=== PATIENT | male | born 1960 | race Caucasian/White ===

== ENCOUNTER 2016-12-04 08:23 | Observation (INO) ==
[2016-12-04] MEDS ORDERED: SALINE FLUSH 10ml SYRINGE IVF PRN (09:07)
[2016-12-04] MEDS ORDERED: ONDANSETRON 4 MG/2 ML INJECTION IVP ONE (09:08)
[2016-12-04] MEDS ORDERED: FentaNYL 100 MCG/2 ML INJECTION IVP ONE (09:08)
--- OUTSIDE RECORDS SUMMARY | 2016-12-04 09:08 | External Medical Summary | Summary of Care ---
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 Take 6 tablets po BIDScript must last [address] Hernandez. Quantity: 360 Refills: 0 Deepa Novak Started 07-Jan-2012 ActiveAtenolol 25 MG Oral Tablet Refills: 0 ActiveSimvastatin 40 MG Oral Tablet Refills: 0 ActiveQvar 80 MCG/ACT Inhalation Aerosol Solution Refills: 0 ActiveProAir HFA 108 (90 Base) MCG/ACT Inhalation Aerosol Solution Refills: 0 ActivePristiq 100 MG Oral Tablet Extended Release 24 Hour Refills: 0 ActiveBaby Aspirin 81 MG CHEW Refills: 0 ActiveMethocarbamol 750 MG Oral Tablet TAKE 1 TABLET TWICE DAILY. Quantity: 60 Refills: 2 Deepa Novak Started 07-Jun-2014 Active Allergies and Adverse Reactions Name Dates Details No Known Allergies Status: Active Procedures Procedure Dates Details Procedures not documented Immunization Name Dates Details Immunizations not documented Social History Smoking StatusUnknown if ever smoked Vital Signs Date Test Result Details No Known Vitals to report Results Date Description Value Details Results not documented Plan of Care Planned Observations Name Dates Details Planned Goals not documented Goal Planned Encounters Appointment; Provider: Deepa Novak On 08:00 Instructions Instructions not documented Encounters Appointment; Deepa Novak On 07-Jun-2014 Encounter Diagnosis: Problem not documented 08:00 Appointment; Deepa Novak On 31-Mar-2014 Encounter Diagnosis: Problem not documented 09:45 Appointment; Remington Hernandez On 07-Dec-2013 Encounter Diagnosis: Problem not documented 08:15 Appointment; Remington Hernandez On Encounter Diagnosis: Problem not documented 08:15 Appointment; Remington Hernandez On 08-Jun-2013 Encounter Diagnosis: Problem not documented 08:15 Appointment; Remington Hernandez On 10-Mar-2013 Encounter Diagnosis: Problem not documented 08:45 Appointment; Remington Hernandez On 09-Dec-2012 Encounter Diagnosis: Problem not documented 08:15 Appointment; Remington Hernandez On Encounter Diagnosis: Problem not documented 08:15 Appointment; Remington Hernandez On 10-Jun-2012 Encounter Diagnosis: Problem not documented 08:15
--- OUTSIDE RECORDS SUMMARY | 2016-12-04 09:08 | External Medical Summary | Summary of Care ---
:1960 Author Name Deepa Robins Address [address] [place], [place] [id number] Care Team Providers Name Role Phone Deepa Robins Unavailable Unavailable Mane Subramanian Primary Care Provider Unavailable Functional Status Functional Status Health Issues Name Dates Details Functional status health issues are not documented Status: Cognitive Status Health Issues Name Dates Details Cognitive status health issues are not documented Status: Problems Name Dates Details Anxiety (300.00, F41.1) Status: Active Lower back pain (724.2, M54.5) [...] Quantity: 360 Refills: 0 Deepa Novak Started 04-Nov-2014 ActiveAtenolol 25 MG Oral Tablet Refills: 0 [...] Planned Encounters Appointment; Provider: Deepa Novak On 29-Nov-2014 08:00 Instructions Instructions not documented Encounters Appointment; Deepa Novak On Encounter Diagnosis: Problem not documented 08:00 Appointment; Deepa Novak On 07-Jun-2014 Encounter Diagnosis: [...]
--- OUTSIDE RECORDS SUMMARY | 2016-12-04 09:08 | External Medical Summary | Summary of Care ---
:1960 Author Name Deepa Robins Address [address] [place], [place] [id number] Care Team Providers Name Role Phone Deepa [...] Quantity: 360 Refills: 0 Deepa Novak Started 07-Jul-2014 ActiveAtenolol 25 MG Oral Tablet Refills: 0 [...]
--- OUTSIDE RECORDS SUMMARY | 2016-12-04 09:08 | External Medical Summary | Referral Summary ---
:1960 Author Organization [facility] Address [address] [place] [address] Encounter VC LISA [id number] Date(s): 05/06/15 - 05/07/15 [facility] [address] [place] [address] Discharge Disposition: 01-Home or Self Care Attending Physician: Juan Manuel Muniz MD Admitting Physician: Juan Manuel Muniz MD Vital Signs Most recent to oldest [Reference Range]: 1 Temperature Temporal Artery [36.3-37.8 degC] 36.4 degC (05/07/15 7:30 AM) Peripheral Pulse Rate [60-100 bpm] 68 bpm (05/06/15 1:17 PM) Heart Rate Monitored [60-100 bpm] 68 bpm (05/07/15 7:30 AM) Respiratory Rate [14-20 br/min] 9 br/min *LOW* (05/07/15 7:30 AM) Blood Pressure [90-140/60-90 mmHg] 114/72 mmHg (05/07/15 7:30 AM) Mean Arterial Pressure, Cuff 89 mmHg (05/07/15 7:30 AM) SpO2 98 % (05/07/15 7:30 AM) Problem List Condition Effective Dates Status Health Status Informant Acute pain(Confirmed) Active Impaired skin integrity(Confirmed)1 Active Tissue perfusion Active alteration(Confirmed)2 Urinary retention(Confirmed)3 Active 1Problem added automatically by system based on initiation of Impaired Skin Integrity Plan of [id number] added automatically by system based on initiation of Tissue Perfusion Cerebral Plan of [id number] added automatically by system based on initiation of Urinary Retention Plan of Care Allergies, Adverse Reactions, Alerts Substance Reaction Severity Status ibuprofen Abdominal pain Active Soma Active Medications amitriptyline 10 mg oral tablet 10 mg 1 tabs, Oral, Bedtime (once a day), 0 Refill(s) Start Date: 05/06/15 Status: Orderedatenolol 25 mg oral tablet 25 mg 1 tabs, Oral, BID, 0 Refill(s) Start Date: 05/06/15 Status: Orderedatorvastatin 40 mg oral tablet 40 mg 1 tabs, Oral, Bedtime (once a day), 0 Refill(s) Start Date: 05/06/15 Status: Orderedbaclofen 10 mg oral tablet 10 mg 1 tabs, Oral, TID, as needed for muscle spasm, 0 Refill(s) Start Date: 05/06/15 Status: OrderedBenadryl 25 mg oral tablet 50 mg 2 tabs, Oral, q4hr, as needed for allergy symptoms, 0 Refill(s) Start Date: 05/06/15 Status: OrderedCalcium 600+D 2 tabs, Oral, Daily, 0 Refill(s) Start Date: 05/06/15 Status: OrderedclonazePAM 1 mg oral tablet 1.5 mg 1.5 tabs, Oral, BID, 0 Refill(s) Start Date: 05/06/15 Status: Orderedcollagenase 250 units/g topical ointment 1 roland, Topical, Daily, 0 Refill(s) Start Date: 05/07/15 Status: Orderedgabapentin 800 mg oral tablet 800 mg 1 tabs, Oral, TID, 0 Refill(s) Start Date: 05/06/15 Status: CqwnvxyYfp-V-Uxp 50+ 1 tabs, Oral, Daily, 0 Refill(s) Start Date: 05/06/15 Status: OrderedoxyCODONE-acetaminophen 10 mg-325 mg oral tablet range dose 1 tabs, Oral, q4hr, every 4-6 hours; not to exceed 6 tablets/day, 0 Refill(s) Start Date: 05/06/15 Status: Orderedpantoprazole 40 mg oral delayed release tablet 40 mg 1 tabs, Oral, Daily, 0 Refill(s) Start Date: 05/06/15 Status: OrderedQvar 80 mcg/inh inhalation aerosol 2 puffs, Inhalation, BID, as needed, 0 Refill(s) Start Date: 05/06/15 Status: OrderedtraZODone 100 mg oral tablet 200 mg 2 tabs, Oral, Bedtime (once a day), 1-2 tabs, 0 Refill(s) Start Date: 05/06/15 Status: OrderedVitamin C 1,000 mg, Oral, Daily, 0 Refill(s) Start Date: 05/06/15 Status: Ordered Results Hematology Most recent to oldest [Reference Range]: 1 WBC [4.8-10.8 10*3/uL] 8.8 10*3/uL (05/07/15 4:40 AM) RBC [4.60-6.20] 3.87 *LOW* (05/07/15 4:40 AM) Hgb [14.0-18.0 gm/dL] 13.0 gm/dL *LOW* (05/07/15 4:40 AM) Hct [42.0-52.0 %] 38.3 % *LOW* (05/07/15 4:40 AM) MCV [82.0-99.0 fL] 99.0 fL (05/07/15 4:40 AM) MCH [27.0-32.0 pg] 33.6 pg *HI* (05/07/15 4:40 AM) MCHC [32.0-36.0 gm/dL] 33.9 gm/dL (05/07/15 4:40 AM) RDW [11.5-14.5 %] 13.4 % (05/07/15 4:40 AM) Platelet [150-400 10*3/uL] 193 10*3/uL (05/07/15 4:40 AM) MPV [9.4-12.3 fL] 9.9 fL (05/07/15 4:40 AM) Immature Granulocytes [0.0-1.0 %] 0.2 % (05/07/15 4:40 AM) Neutrophils [51-75 %] 50 % *LOW* (05/07/15 4:40 AM) Lymphocytes [20-46 %] 35 % (05/07/15 4:40 AM) Monocytes [4-11 %] 11 % (05/07/15 4:40 AM) Eosinophils [0-4 %] 3 % (05/07/15 4:40 AM) Basophils [0-2 %] 1 % (05/07/15 4:40 AM) Neutro Absolute [1.90-7.00 10*3] 4.37 10*3 (05/07/15 4:40 AM) Lymph Absolute [0.80-3.30 10*3] 3.10 10*3 (05/07/15 4:40 AM) Nash Absolute [0.30-1.00 10*3] 0.96 10*3 (05/07/15 4:40 AM) Eos Absolute [0.00-0.50 10*3] 0.28 10*3 (05/07/15 4:40 AM) Baso Absolute [0.00-0.20 10*3] 0.06 10*3 (05/07/15 4:40 AM) Nucleated RBC Automated [0 /100 WBC] 0.0 /100 WBC (05/07/15 4:40 AM) Chemistry Most recent to oldest [Reference Range]: 1 Sodium Lvl [136-144 mEq/L] 134 mEq/L *LOW* (05/07/15 4:40 AM) Potassium Lvl [3.6-5.1 mEq/L] 3.4 mEq/L *LOW* (05/07/15 4:40 AM) Chloride [99-109 mEq/L] 102 mEq/L (05/07/15 4:40 AM) CO2 [22-32 mEq/L] 24 mEq/L (05/07/15 4:40 AM) AGAP [3-20] 8 (05/07/15 4:40 AM) BUN [4-20 mg/dL] 16 mg/dL (05/07/15 4:40 AM) Glucose Lvl [70-100 mg/dL] 104 mg/dL *HI* (05/07/15 4:40 AM) Creatinine Lvl [0.64-1.27 mg/dL] 1.34 mg/dL *HI* (05/07/15 4:40 AM) eGFR [>60] 55 1 *ABN* (05/07/15 4:40 AM) Calcium Lvl [8.6-10.0 mg/dL] 8.6 mg/dL (05/07/15 4:40 AM) Magnesium Lvl [1.8-2.5 mg/dL] 1.9 mg/dL (05/07/15 4:40 AM) 1Result Comment: Multiply eGFR results by 1.21 for race. Immunizations No data available for this section Procedures Procedure Date Related Diagnosis Body Site Dressings and/or debridement of partial-thickness 05/06/15 kenny, initial or subsequent; small (less than 5% total body surface area) Arthroscopic repair of meniscus History of back surgery History of tonsillectomy Social History No data available for this section Assessment and Plan No data available for this section
--- OUTSIDE RECORDS SUMMARY | 2016-12-04 09:08 | External Medical Summary | Summary of Care ---
:1960 Author Name Deepa Robins Address [address] [place], [place] [id number] Care Team Providers Name Role Phone Deepa Robins Unavailable Unavailable Janelle Hernandez M.D. Unavailable Unavailable Mane Subramanian Primary Care Provider [...] by Dr. Hernandez. Quantity: 360 Refills: 0 Remington Hernandez M.D. Started ActiveAtenolol 25 MG Oral Tablet Refills: 0 [...]
--- OUTSIDE RECORDS SUMMARY | 2016-12-04 09:08 | External Medical Summary | Summary of Care ---
:1960 Author Name Janelle Hernandez M.D. Address [address] [place], [place] [id number] Care Team Providers Name Role Phone Deepa [...] 360 Refills: 0 Remington Hernandez M.D. Started 03-Jan-2015 ActiveAtenolol 25 MG Oral Tablet Refills: 0 [...] 60 Refills: 2 Deepa Novak Started 07-Jun-2014 ActiveOxycodone-Acetaminophen 10-325 MG Oral Tablet Take 1 to 2 PO every 4-6 hrs prn*max 2 per day*Script must last [address] Hernandez Quantity: 60 Refills: 0 Remington Hernandez M.D. Started 29-Dec-2014 Active Allergies and Adverse Reactions Name Dates Details No Known Allergies Status: Active Procedures Procedure Dates Details Procedures not documented Immunization Name Dates Details Immunizations not documented Social History Name Dates Details Smoking StatusFormer smoker Vital Signs Date Test Result Details No Known Vitals to report Results Date Description Value Details Results not documented Plan of Care Planned Observations Name Dates Details Planned Goals not documented Goal Instructions Instructions not documented Encounters Appointment; Remington Hernandez On 29-Nov-2014 Encounter Diagnosis: Problem not documented 08:15 Appointment; Deepa Novak On Encounter Diagnosis: Problem [...]
--- NOTE | 2016-12-04 09:09 | Emergency Department Report ---
General Adult HPI - General Chief complaint: Extremity Injury, Upper Stated complaint: Cat bite Time Seen by Provider: 12/04/16 09:06 Source: patient Mode of arrival: ambulatory Limitations: no limitations - History of Present Illness HPI narrative: 56-year-old male presents to the emergency department with a chief complaint of suffering a cat bite 4 days ago. Patient was bitten by his own cat. Cat is vaccinated. Patient notes increasing redness and swelling to the right upper extremity over the past 4 days. Patient was started on Augmentin one day ago by his primary care physician without improvement of symptoms. Patient describes the pain as dull. Pain is moderate. No radiation. Pain improves with analgesia. Patient denies any other complaints or associated symptoms. He was at home when the symptoms began. Symptoms have been persistent in nature since onset. Patient states his tetanus vaccine is current. - Related Data Home Medications Medication Instructions Recorded Confirmed Aspirin [Aspir 81] 81 mg PO DAILY #0 06/02/14 12/04/16 Multivitamin/Iron/Folic Acid 1 tab PO DAILY #0 06/02/14 12/04/16 [Centrum Complete Multivit Tab] benazepril 10 mg tablet 10 mg PO DAILY tab 07/26/16 12/04/16 Vicodin HP (Hydrocodone 10 1 tab PO .6 times per day PRN tab 08/13/16 12/04/16 mg-acetaminophen 300 mg tablet) Previous Rx's Medication Instructions Recorded trazodone 100 mg tablet 100 mg PO HS #30 tab 11/27/16 Colyte 240 gram-electrolytes 22.72 240 ml PO Q10M #1 gal 11/29/16 gram-6.72 g-5.84 g powdr for soln Neurontin (gabapentin) 800 mg 800 mg PO QID #180 tab 11/29/16 tablet Prilosec (Omeprazole) 40 mg 40 mg PO AM #30 cap 11/29/16 capsule,delayed release Zocor (simvastatin) 20 mg tablet 20 mg PO HS #90 tab 11/29/16 albuterol sulfate HFA 90 1 puff INH Q6H PRN #18 g 11/29/16 mcg/actuation aerosol inhaler baclofen 10 mg tablet 10 mg PO Q8H #60 tab 11/29/16 Augmentin (amoxicillin 875 1 tab PO BID #10 tab 12/03/16 mg-potassium clavulanate 125 mg) tablet Allergies Allergy/AdvReac Type Severity Reaction Status Date / Time clonazepam [From Klonopin] Allergy Unknown Verified 08/13/16 13:00 Sulfa (Sulfonamide Allergy Unknown Unverified 08/13/16 13:00 Antibiotics) ibuprofen AdvReac Mild UPSETS Verified 08/13/16 13:00 STOMACH Review of Systems Constitutional: Denies: fever, chills Eyes: Denies: eye pain, vision change ENT: Denies: ear pain, throat pain Cardiovascular: Denies: chest pain, palpitations Respiratory: Denies: cough, dyspnea Gastrointestinal: Denies: abdominal pain, nausea, vomiting, diarrhea Genitourinary: Denies: urgency, dysuria Musculoskeletal: Denies: back pain, arthralgia Integumentary: Reports: erythema. Denies: rash Neurological: Denies: headache, weakness Psychiatric: Denies: anxiety, depression Endocrine: Denies: fatigue, heat or cold intolerance Hematological/Lymphatic: Denies: easy bleeding, easy bruising Allergic/Immunologic: Denies: facial swelling, urticaria PFSH Patient Stated Medical History Hypertension Yes Other Respiratory Yes: [facility] Medical History (Last Reviewed 08/13/16 @ 13:01 by AMINATA Daniel) CAD (coronary artery disease) (Chronic Medical) COPD (chronic obstructive pulmonary disease) (Chronic Medical) Low back pain (Chronic Medical) Surgical History: CABG Family History: Family History (Last Reviewed 08/13/16 @ 13:01 by AMINATA Daniel) Father , Lung Cancer age 65 Lung cancer CAD (coronary artery disease) HTN (hypertension) Mother , age 67 Multiple myeloma and diabetes Multiple myeloma Diabetes - Social History Smoking status: Former smoker Substance use type: does not use Alcohol intake frequency: does not drink Physical Exam - Limitations Limitations: no limitations - General General appearance: alert, in no apparent distress - Normal Exams: Head:: Normocephalic without trauma Eyes:: Pupils are PERRLA w/ EOMI, No scleral icterus, irritation, or foreign bodies noted ENMT:: No facial trauma, nasal exudates, pharyngeal erythema, or exudates are noted Dental: No fractured, loose, or missing teeth noted Neck:: Full range of motion, without adenopathy, JVD, bruits or thyromegaly Chest/Respirations:: Clear all condon, with good airflow, and symmetry bilaterally Cardiovascular:: Regular rate and rhythm, without murmur or gallop, Pulses 2+ all extremities, capillary refill, <2 seconds all extremities Abdomen:: Bowel sounds positive, soft, non-tender, non-distended, no hepatosplenomegaly, masses or bruits noted Lymphatic:: No lymphadenopathy, or lymphedema noted Musculoskeletal:: No tenderness, or deformity noted, good range of motion, all extremities Integumentary:: No rashes, hives, or bruising noted, hair and nails, without abnormality (RUE - erythema consistent with cellulitis overlying the volar surface of the forearm extending down into the palm of the hand and approximately two thirds up the volar surface of the forearm. No sign of abscess. Pulses are intact. Sensation intact. Capillary refill less than 2. Full range of motion. No focal bony tenderness. No other tenderness in the right upper extremity.) Neurological:: Patient is alert, and oriented, cranial nerves, motor/sensory/ cerebellar, exams w/o gross deficits, to observation Course Vital Signs Temperature 97.8 F 12/04/16 08:40 Pulse Rate 93 12/04/16 08:40 Respiratory Rate 16 12/04/16 08:40 Blood Pressure 155/91 H 12/04/16 08:40 Pulse Oximetry 96 12/04/16 08:40 Temperature 97.8 F 12/04/16 08:40 Pulse Rate 93 12/04/16 08:40 Respiratory Rate 16 12/04/16 08:40 Blood Pressure 155/91 H 12/04/16 08:40 Pulse Oximetry 96 12/04/16 08:40 Medical Decision Making - [facility] Narrative Medical decision making narrative: Labs / imaging were discussed in detail with the patient and questions are answered. Patient is given analgesic pain medication with improvement of symptoms in the emergency Department. Patient is started on Zosyn 4.5 g IV 1 after blood cultures and lactic acid are obtained. Patient is admitted to the service of the hospitalist Dr. Mckinney after discussion with him for further evaluation and treatment. Patient has failed outpatient treatment. Patient is in agreement with the current plan of management. No further orders from accepting physician who is in agreement with the current plan of management. - Differential Diagnosis cellulitis, lymphangitis, cat bite, abscess - Lab Data Result diagrams: 12/04/16 09:25 12/04/16 09:25 Lab Results 12/04/16 12/04/16 12/04/16 Range/Units 09:25 09:25 09:25 WBC 10.0 (4.5-11.0) T/MM3 RBC 3.57 L (4.50-5.90) M/MM3 Hgb 12.6 L (13.5-17.5) GM/DL Hct 37.1 L (41-53) % MCV 103.9 H (80-100) UM3 MCH 35.3 H (26-34) UUG MCHC 34.0 (31-37) GM/DL RDW Std Deviation 47.0 (36.9-50.2) FL Plt Count 187 (130-400) T/MM3 MPV 9.7 (9.4-12.4) UM3 Immature Gran % (Auto) Not performed Neut % (Auto) Not performed Lymph % (Auto) Not performed [place] % (Auto) Not performed Eos % (Auto) Not performed Baso % (Auto) Not performed Neut # (Auto) Not performed Lymph # (Auto) Not performed [place] # (Auto) Not performed Eos # (Auto) Not performed Baso # (Auto) Not performed Abs Immat Gran (auto) Not performed Neutrophils % (Manual) 86.0 H (33-66) % Band Neutrophils % 1.0 (0-6) % Lymphocytes % (Manual) 7.0 L (23-45) % Monocytes % (Manual) 6.0 (0-9.0) % Neutrophils # (Manual) 8.6 H (1.8-7.7) T/MM3 Band Neutrophils # 0.1 T/MM3 Lymphocytes # (Manual) 0.7 L (1-4.8) T/MM3 Monocytes # (Manual) 0.6 (0-0.8) T/MM3 Anisocytosis 1+ RBC Morph Comment Abnormal Turbidity < 20 (0-20) Sodium 143 (134-144) MEQ/L Potassium 4.2 (3.6-5) MEQ/L Chloride 110 H (98-107) MEQ/L Carbon Dioxide 23 (22-30) MEQ/L Anion Gap 10 (5-15) MEQ/L BUN 12.0 (9-20) MG/DL Creatinine 0.9 (0.8-1.5) MG/DL GFR Calculation 87 BUN/Creatinine Ratio 13 (6-26) RATIO Glucose 115 H (75-110) MG/DL Calculated Osmolality 276 (261-280) MOSM/KG Calcium 9.6 (8.4-10.2) MG/DL Total Bilirubin 0.40 (0.20-1.30) MG/DL Icterus Index < 2 (0-7) AST 19 (17-59) U/L ALT 39 (21-72) U/L Alkaline Phosphatase 102 (38-126) U/L Total Protein 6.9 (6.3-8.2) G/DL Albumin 3.9 (3.5-5.0) G/DL Globulin 3.0 (2.4-3.6) G/DL Albumin/Globulin Ratio 1.3 (1.1-2.2) RATIO Plasma Lactate 1.7 (0.6-2.2) MMOL/L Procalcitonin 0.06 NG/ML Specimen Hemolysis < 15 (0-25) - Radiology Data XR Radius / Ulna: No acute processes. Disposition Clinical Impression: Cat bite involving extremity Cellulitis Qualifiers: Site of cellulitis of extremity: upper extremity Laterality: right Disposition: 02 To [facility] Condition: Improved Prescriptions: No Action Multivitamin/Iron/Folic Acid [Centrum Complete Multivit Tab] 1 tab PO DAILY # 0 Aspirin [Aspir 81] 81 mg PO DAILY #0 trazodone 100 mg tablet 100 mg PO HS #30 tab Zocor (simvastatin) 20 mg tablet 20 mg PO HS #90 tab albuterol sulfate HFA 90 mcg/actuation aerosol inhaler 1 puff INH Q6H PRN # 18 g PRN Reason: PRN ORDERS baclofen 10 mg tablet 10 mg PO Q8H #60 tab Colyte 240 gram-electrolytes 22.72 gram-6.72 g-5.84 g powdr for soln 240 ml PO Q10M #1 gal benazepril 10 mg tablet 10 mg PO DAILY tab Vicodin HP (Hydrocodone 10 mg-acetaminophen 300 mg tablet) 1 tab PO .6 times per day PRN tab PRN Reason: pain Neurontin (gabapentin) 800 mg tablet 800 mg PO QID #180 tab Prilosec (Omeprazole) 40 mg capsule,delayed release 40 mg PO AM #30 cap Augmentin (amoxicillin 875 mg-potassium clavulanate 125 mg) tablet 1 tab PO BID #10 tab Referrals: Libra Antoine APRN [Family Provider] - Time of Disposition: 10:00 (Admit. Dr. Mckinney. ) - Seen By: physician
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
--- OUTSIDE RECORDS SUMMARY | 2016-12-04 09:09 | External Medical Summary | Summary of Care ---
:1960 Author Name Deepa Robins Address [address] [place], [place] [address] Care Team Providers Name Role Phone Deepa [...] Lower back pain (724.2, M54.5) Status: Active Medications Name Dates Details Methadone [...]
--- OUTSIDE RECORDS SUMMARY | 2016-12-04 09:09 | External Medical Summary | Continuity of Care Document ---
:1960 Author Organization [facility] Support Name Relationship Address Phone TREMAYNE ALEGRIA MD Unavailable [address] Unavailable [address] [place] [address] ANDREY COATES Unavailable [address] [place] [address] Insurance Providers Payer Name Policy Number Subscriber Name Relationship Medicare [id number] Isma Coates 17 Self Advance Directives Directive Response Recorded Date/Time Ordered Resuscitation Status Full Code 06/02/14 1:32pm Resuscitation Documents on File No 06/02/14 1:17pm Problems No known problems or medical conditions. Medications Medication Dose Route Sig Days/Qty Instructions Order Discontinued Status Date Date Atenolol 1 Tab PO TWICE A 03/29/ Active DAY 09 Albuterol 1 Puff INH Every 6 06/02/ Active Sulfate Hours 15 Aspirin 1 Tab PO DAILY 06/02/ Active 15 Multivitamin/Iro 1 Tab PO DAILY 06/02/ Active n/Folic Acid 15 Methadone HCl 2 Tab PO Every 6 06/02/ Active Hours 15 Beclomethasone 80 Mcg INH TWICE A 06/02/ Active Dipropionate DAY 15 Ranitidine HCl 150 Mg PO DAILY 06/02/ Active 15 Gabapentin 1 Cap PO TWICE A 06/02/ Active DAY 15 Atorvastatin 40 Mg PO BEDTIME 06/02/ Active Calcium 15 Losartan 25 Mg PO DAILY 06/02/ Active Potassium 15 Buspirone HCl 7.5 Mg PO TWICE A 06/02/ Active DAY 15 Social History Social History Problem Response Recorded Date/Time Chewing Tobacco Status No 06/02/2014 1:03pm Hx Substance Use No 06/02/2014 1:03pm Hx Alcohol Use No 06/02/2014 1:03pm Has the pt used tobacco in the last 12 months No 06/03/2014 6:50am Query Response Start Date Stop Date Smoking Status Former smoker Hospital Discharge Instructions No hospital discharge instructions. Plan of Care No plan of care. Functional Status No functional status results. Allergies, Adverse Reactions, Alerts Allergen Type Severity Reaction Status Last Updated Sulfa (Sulfonamide Allergy Unknown Active 06/02/14 Antibiotics) Ibuprofen Adverse Reaction Mild UPSETS STOMACH Active 03/29/08 Immunizations Name Given Type Hx Influenza Vaccination Y JANUARY 2014 Historical Hx Pneumococcal Vaccination Y JANUARY 2014 Historical Hx Influenza Vaccination January 2014 Historical Vital Signs Acute Vital Signs Vital Response Date/Time Temperature (Fahrenheit) 98.1 deg F (96.8 - 99.1) Temperature (Calculated Celsius) 36.10166 degrees C (36.0 - 37.3) Temperature Source Temporal Pulse Rate (adult) 58 bpm (60 - 100) Respiratory Rate 18 breaths/min (10 - 20) O2 Sat by Pulse Oximetry 99 % (90 - 100) Oxygen Delivery Method Room Air Blood Pressure 152/67 mm Hg Blood Pressure Source Automatic Cuff Height 6 ft 2 in Weight 218 lb Body Mass Index 28.0 kg/m^2 Results No known relevant diagnostic tests, laboratory data and/or discharge summary. Procedures Procedure Status Date Provider(s) Colonoscopy completed 06/03/14 TREMAYNE ALEGRIA MD Esophagogastroduodenoscopy (EGD) with closed biopsy completed 06/03/14 TREMAYNE ALEGRIA MD
--- OUTSIDE RECORDS SUMMARY | 2016-12-04 09:09 | External Medical Summary | Summary of Care ---
:1960 Author Name Deepa Robins Address [address] [place], [place] [id number] Care Team Providers Name Role Phone Deepa [...] HCl - 10 MG Oral Tablet Sig. 6 PO Bid.Script must last 30 days. Fill on or after 05-04-2014.Managed by Dr. Hernandez. Quantity: 360 Refills: 0 Deepa Novak Started 07-Jan-2012 ActiveAtenolol 25 MG Oral Tablet Refills: 0 ActiveSimvastatin 40 MG Oral Tablet Refills: 0 ActiveQvar 80 MCG/ACT Inhalation Aerosol Solution Refills: 0 ActiveProAir HFA 108 (90 Base) MCG/ACT Inhalation Aerosol Solution Refills: 0 ActivePristiq 100 MG Oral Tablet Extended Release 24 Hour Refills: 0 ActiveBaby Aspirin 81 MG CHEW Refills: 0 Active Allergies and Adverse Reactions Name Dates [...] Planned Encounters Appointment; Provider: Deepa Novak On 07-Jun-2014 08:00 Instructions Instructions not documented Encounters Appointment; Deepa Novak On 31-Mar-2014 Encounter Diagnosis: [...]
--- OUTSIDE RECORDS SUMMARY | 2016-12-04 09:09 | External Medical Summary | Summary of Care ---
:1960 Author Name Janelle Hernandez M.D. Address [address] [place], [place] [id number] Care Team Providers Name Role Phone Deepa [...] Encounter Diagnosis: Problem not documented 08:15 Appointment; Remintgon Hernandez On Encounter Diagnosis: Problem not documented 08:15
--- NOTE | 2016-12-04 09:57 | XRay Report ---
Indication: cat bite, cellulitis PROCEDURE: XR rad/uln RT 2V: Encounter: Initial Comparison: None Findings: There is no acute fracture, dislocation or malalignment identified. No radiopaque foreign body identified. No definite subcutaneous gas. Impression: No acute osseous abnormality. .
[2016-12-04] MEDS ORDERED: PIPERACILLIN/TAZOBACTAM 4.5 GM in NS 100 ML IV ONE (10:08)
[2016-12-04] MEDS ORDERED: HYDROMORPHONE 2 MG/ML INJECTION IVP ONE (10:22)
[2016-12-04] MEDS ORDERED: PNEUMOCOCCAL VAC ADMIN CHARGE INJ ONE (10:34)
[2016-12-04] MEDS ORDERED: ACETAMINOPHEN 325 MG TABLET PO PRN (10:57)
[2016-12-04] MEDS ORDERED: NS 1,000 ML IV SCH (11:00)
[2016-12-04] MEDS: PIPERACILLIN/TAZOBACTAM 3.375 GM in NS 100 ML IV SCH ×3 (11:01→22:48)
[2016-12-04 11:19] VITALS: BMI 27.3
[2016-12-04] MEDS ORDERED: PNEUMOCOCCAL 13 VACCINE 0.5ml INJECTION IM ONE (11:19)
[2016-12-04] MEDS ORDERED: ALBUTEROL 2.5mg/3ml (0.083%) NEB AEROSOL PRN (12:36)
[2016-12-04] MEDS ORDERED: OMEPRAZOLE 20 MG CAPSULE PO SCH (12:45)
--- NOTE | 2016-12-04 12:53 | History & Physical Report ---
<Maribell iKncaid Shahana - Last Filed: 12/04/16 15:13> History of Present Illness Date: 12/04/16 Chief complaint: Cat bite, arm pain HPI: Broderick Chung is a pleasant 56-year-old male who presented to [facility] emergency department today, 12/04/16, for evaluation of a cat bit to his right forearm. He reports that on 11/30/16 he was petting his cat at home on the stomach when the cat bit and scratched his right anterior wrist and forearm. He reports that his cat is up to date on all his vaccinations and denies any concerns for rabies. On 12/02, he noticed some increased tenderness and mild erythema to the anterior right wrist by the puncture wound. Yesterday, he noticed the erythema was spreading up his right arm with increased pain. He was seen by his PCP, Dr. Subramanian, and started on Augmentin orally. Today, he woke up with severe right forearm, wrist and hand pain with further extending erythema into his right hand along the 5th phalange and up his anterior right forearm. No obvious swelling, bleeding or discharge from the puncture wounds or the scratch. He denies any fevers, chill, chest pain, shortness of breath, abdominal pain, nausea, vomiting or other concerns. Due to his increased pain and worsening erythema despite taking 3 doses of the Augmentin, he presented to [facility] emergency department for further evaluation. Labs were obtained in the ED which revealed WBC 10.0 with 86% neutrophils and 1% bands, mild anemia with hemoglobin at 12.6 , platelets 187. CMP was unremarkable. CRP was elevated at 25.7. Lactate was 1.7 and procalcitonin was 0.06. Forearm x-ray was obtained and showed no acute osseous abnormalities. Due to his severe pain, he was given dilaudid and fentanyl with brief improvement in his pain. Zosyn was initiate for antimicrobial coverage. Dr. Tena was contacted and he was admitted into observation status for further evaluation and treatment. His length of stay is not expected to exceed more than 2 over nights. Review of Systems All systems PM: 10-point ROS was reviewed, no additional remarkable complaints except - Constitutional Constitutional: Absent: chills, fever(s) - EENMT Eyes: Absent: change in vision, photophobia Nose: Absent: nosebleeds Mouth/Throat: Absent: sore throat - Cardiovascular Cardiovascular: Absent: chest pain, palpitations, syncope, dyspnea on exertion, orthopnea, edema Rhythm: Present: regular rhythm Vascular: Absent: pedal edema - Respiratory Respiratory: Absent: cough, dyspnea, hemoptysis, dyspnea on exertion, wheezing, pain on inspiration, chest congestion - Gastrointestinal Gastrointestinal: Present: constipation. Absent: abdominal pain, change in bowel habits, nausea, vomiting - Genitourinary Genitourinary: Absent: dysuria, flank pain, hematuria - Musculoskeletal Musculoskeletal: Present: back pain, limited range of motion (right hand and wrist) - Integumentary/Breasts Integumentary: Present: erythema (right forearm, wrist and hand.), wounds (2 puncture wounds to right forearm.). Absent: jaundice - Neurological Neurological: Present: restless legs. Absent: dizziness - Psychiatric Psychiatric: Present: anxiety - Endocrine Endocrine: Absent: palpitations, polyuria - Hematologic/Lymphatic Hematologic/Lymphatic: Absent: easy bruising - Allergic/Immunologic Allergic/Immunologic: Absent: itchy eyes [facility] Patient Stated Medical History Hypertension. GERD with history of PUD. Hypercholesterolemia. Peripheral neuropathy. History of prior [place]. CAD. COPD-emphysema. Anemia. Anxiety. Chronic low back pain. Surgical History: CABG x3 - 1996. Nerve stimulator to back - 11/02/2016. Back surgeries x 5 with hardware placement. Right meniscus repair. Tonsillectomy. Family History: Family History Father - age 65, Lung cancer, CAD (coronary artery disease), HTN ( hypertension). Mother - age 67, Multiple myeloma, Diabetes. Sister - alive, Diabetes. Brother - , Diabetes. - Social History Smoking status: Former smoker (quit in .) Substance use type: does not use Alcohol intake frequency: does not drink Housing: house Household members: none Current occupational status: disabled (secondary to back pain.) Current residence: Apartment/Private Home Social history: PCP - Dr. Subramanian. Medications Home Medications Medication Instructions Recorded Confirmed Type Aspirin [Aspir 81] 81 mg PO DAILY #0 06/02/14 12/04/16 History Multivitamin/Iron/Folic Acid 1 tab PO DAILY #0 06/02/14 12/04/16 History [Centrum Complete Multivit Tab] benazepril 10 mg tablet 10 mg PO DAILY tab 07/26/16 12/04/16 History Vicodin HP (Hydrocodone 10 1 tab PO .6 times per day PRN tab 08/13/16 12/04/16 History mg-acetaminophen 300 mg tablet) Allergies Allergy/AdvReac Type Severity Reaction Status Date / Time clonazepam [From Klonopin] Allergy Unknown Verified 12/04/16 10:17 Sulfa (Sulfonamide Allergy Unknown Verified 12/04/16 10:17 Antibiotics) ibuprofen AdvReac Mild UPSETS Verified 12/04/16 10:17 STOMACH Exam Vital Signs: Temperature 96.4 F L 12/04/16 11:02 Pulse Rate 81 12/04/16 11:02 Respiratory Rate 16 12/04/16 11:02 Blood Pressure 144/85 H 12/04/16 11:02 Pulse Oximetry 95 12/04/16 11:02 Height/Weight/BMI: Height 6 ft 1 in Weight 207 lb 10.807 oz Body Mass Index 27.3 - Constitutional Present: no acute distress, well nourished, well developed, cooperative - Routine HEENT Exam Head: Present: normocephalic, atraumatic Eye: Present: PERRL. Absent: conjunctival icterus ENT: Present: mucous membranes moist - Routine Neck Exam Present: supple, full ROM, trachea midline - Routine Chest/Breast/Axilla Exam Chest wall: Absent: pacemaker Comments: healed linear scar noted to sternum secondary prior CABG. - Routine Respiratory Exam Present: CTA bilaterally. Absent: stridor, wheezes, crackles - Routine Cardiovascular Exam Present: RRR, S1, S2 - Routine Abdominal Exam Present: soft, normoactive bowel sounds, non tender - Routine Extremities Exam Present: no edema, pulses intact Comments: significant pain with flexion and extension of right wrist and fingers. Tenderness with palpation along and movement of flexor carpi ulnaris and palmaris longus. - Detailed Upper Extremity Exam Forearm: Right tenderness (anterior), Right wound, Right erythema (anterior ), Right warmth (anterior) Wrist: Right erythema (anterior), Right tenderness, Right wound (2 puncture wounds and superficial linear abrasion to anterior aspect ), Right decreased ROM (secondary to severe pain), Right pain with active ROM, Right pain with passive ROM Hand/Fingers: Right erythema (along 5th metacarpal), Right tenderness, Right warmth, Right decreased ROM (secondary pain), Right pain with active ROM, Right pain with passive ROM - Routine Back/Spine/Pelvis Exam Back/Spine: Present: full ROM Comments: chronic low back pain. - Routine Skin Exam Present: dry, warm. Absent: jaundice - Detailed Skin Exam Type of lesion/wound: Present: abrasion (right forearm/wrist), puncture wound ( x2, right forearm/wrist.) - Routine Neurological Exam Present: alert, oriented X3, moving all extremities, hearing grossly intact, normal speech. Absent: facial asymmetry - Routine Psychiatric Exam Present: normal affect, cooperative, good insight, good judgment Results - Labs CBC & Chem 7: 12/04/16 09:25 12/04/16 09:25 Assessment and Plan (1) Cat bite involving extremity Current visit: Yes Status: Acute DVT Prophylaxis: SCD's GI Prophylaxis: other (Prilosec) Assessment and Plan: Assessment Cat bite with cellulitis and failed outpatient antimicrobial treatment, acute. Hypertension, chronic. CAD, chronic. GERD with history of PUD, chronic. Hypercholesterolemia, chronic. COPD and emphysema, chronic. Anxiety, chronic. Anemia, macrocytic, chronic. Low back pain, chronic. Plan-12/04/16 (Admission) Admit to observation status under the care of Dr. Tena. Initially started on Augmentin as outpatient for cat bite with worsening of symptoms. Discontinue home Augmentin and initiate Zosyn 3.375g IV Q6 hr for antimicrobial coverage. Cellulitis to right forearm noted on exam and outlined with skin marker. Monitor cellulitis closely for worsening. Initial lactate 1.7 and repeat lactate 2.5. Procalcitonin 0.06 on admission. Will obtain repeat lactate and recheck procalcitonin in AM to monitor for improvement. Forearm x-ray in ED showed no acute osseous abnormality. No bleeding or discharge to puncture wounds noted on exam. Consider surgical consult for further evaluation and possible surgical wash out. Patient is up to date on his tetanus - obtained in 2016 per patient. Intensity of pain with movement and palpation along tendon concerning for tenosynovitis of flexor carpi ulnaris and palmaris longus. May consider immobilization of wrist for additional pain control. Macrocytic anemia noted on admission. History of anemia. Will monitor closely throughout admission. No signs of active bleeding on exam. History of PUD and GERD. Continue home Prilosec. Patient reports he is scheduled for EGD and colonoscopy on 12/10/[address] Subramanian. SCDs for DVT prophylaxis. Continue home medications including benazepril for hypertension. Monitor blood pressure closely. History of chronic back pain. Nerve stimulator placed 11/02/16. Continue home pain medications. Dilaudid 0.5mg Q3h for additional pain control. Lactobacillus in light of antibiotic. Patient reports loose stool today. CRP elevated on admission at 25.7. WBC stable at 10.0 with 86% neutrophils and 1% bands. Will recheck CBC and BMP in AM to monitor blood counts, electrolytes and renal function. Upon discharge, patient's care will be returned to his PCP, Dr. Subramanian. - Time spent with patient Time with patient PN: 50 minutes Sepsis Assessment - Evaluation Possible source: skin/soft tissue, wound Severe Sepsis: lactate > or equal to 2.0 mg/dl Hospital Course Summary Disclaimer: The visit summary below is not to be considered part of the above Progress Note. Hospital Course: Plan-12/04/16 (Admission) Admit to observation status under the care of Dr. Tena. Initially started on Augmentin as outpatient for cat bite with worsening of symptoms. Discontinue home Augmentin and initiate Zosyn 3.375g IV Q6 hr for antimicrobial coverage. Cellulitis to right forearm noted on exam and outlined with skin marker. Monitor cellulitis closely for worsening. Initial lactate 1.7 and repeat lactate 2.5. Procalcitonin 0.06 on admission. Will obtain repeat lactate and recheck procalcitonin in AM to monitor for improvement. Forearm x-ray in ED showed no acute osseous abnormality. No bleeding or discharge to puncture wounds noted on exam. Consider surgical consult for further evaluation and possible surgical wash out. Patient is up to date on his tetanus - obtained in 2016 per patient. Intensity of pain with movement and palpation along tendon concerning for tenosynovitis of flexor carpi ulnaris and palmaris longus. May consider immobilization of wrist for additional pain control. Macrocytic anemia noted on admission. History of anemia. Will monitor closely throughout admission. No signs of active bleeding on exam. History of PUD and GERD. Continue home Prilosec. Patient reports he is scheduled for EGD and colonoscopy on 12/10/[address] Subramanian. SCDs for DVT prophylaxis. Continue home medications including benazepril for hypertension. Monitor blood pressure closely. History of chronic back pain. Nerve stimulator placed 11/02/16. Continue home pain medications. Dilaudid 0.5mg Q3h for additional pain control. Lactobacillus in light of antibiotic. Patient reports loose stool today. CRP elevated on admission at 25.7. WBC stable at 10.0 with 86% neutrophils and 1% bands. Will recheck CBC and BMP in AM to monitor blood counts, electrolytes and renal function. Upon discharge, patient's care will be returned to his PCP, Dr. Subramanian. <Tomas Tena - Last Filed: 12/04/16 17:06> History of Present Illness Date: 12/04/16 [facility] Patient Stated Medical History Peripheral Neuropathy Yes: BILATERAL FEET Dental Problems Yes: IMPLANTS FROM ROTTEN TEETH Hypertension Yes Myocardial Infarction Yes Bronchitis Yes: HX OF Chronic Obstructive Pulmonary Yes Disease (COPD) Pneumonia Yes: HX OF Other Respiratory Yes: EMPHYSEMA Gastroesophageal Reflux Yes Disease Anemia Yes: TAKES IRON Cellulitis Yes Clinic Medical History (Last Reviewed 08/13/16 @ 13:01 by AMINATA Daniel) CAD (coronary artery disease) (Chronic Medical) COPD (chronic obstructive pulmonary disease) (Chronic Medical) Low back pain (Chronic Medical) Family History: Family History (Last Reviewed 08/13/16 @ 13:01 by AMINATA Daniel) Father , Lung Cancer age 65 Lung cancer CAD (coronary artery disease) HTN (hypertension) Mother , age 67 Multiple myeloma and diabetes Multiple myeloma Diabetes Exam Vital Signs: Temperature 96.4 F L 12/04/16 11:02 Pulse Rate 81 12/04/16 11:02 Respiratory Rate 12 12/04/16 12:57 Blood Pressure 144/85 H 12/04/16 11:02 Pulse Oximetry 97 12/04/16 12:57 Height/Weight/BMI: Height 1.85 m Weight 94.2 kg Body Mass Index 27.3 Results - Labs CBC & Chem 7: 12/04/16 09:25 12/04/16 09:25 Assessment and Plan (1) Cat bite involving extremity Current visit: Yes Status: Acute Assessment and Plan: Assessment Cat bite with cellulitis to right upper forearm and failed outpatient antimicrobial treatment, acute. Hypertension, chronic. CAD, chronic. GERD with history of PUD, chronic. Hypercholesterolemia, chronic. COPD and emphysema, chronic. Anxiety, chronic. Anemia, macrocytic, chronic. Low back pain, chronic. Have independently interviewed and examined pt. Chart reviewed. Case discussed with ED physician and my PA. Care plan developed with my supervision; agree with above. Bitten by cat 4 days ago (was rubbing cat's belly, which he knows will aggravate her). Very sore at first but has noticed increasing pain and redness since. Seen in clinic and started on Augmentin-adherent with medication but notes increasing pain and redness despite treatment. Pain with moving fingers and wrist. No nausea or ab pain with Augmenting. Stools slightly loose since starting. No f/c. Breathing stable-not having increase congestion or cough. No chest pressure or pain. See in ED for evaluation. With increasing erythema despite appropriate outpatient treatment, did place pt in OBS to initiate more aggressive antimicrobial treatment. Lungs: decreased, no distress on RA CV: regular AB; soft nt/nd +BS EXT: erythema on anterior aspect of distal forearm. Pain with ROM of wrist and fingers. No axillary adenopathy. MSE: awake alert appropriate Plan: OBS. Zosyn for antimicrobial coverage. IVF for support. Monitor lab. Monitor for increasing erythema. Dilaudid for severe pain. Zofran as needed for nausea. SCD for DVT prevention. Care to return to Dr Subramanian at time of discharge from [facility]. Hospital Course Summary Disclaimer: The visit summary below is not to be considered part of the above Progress Note.
[2016-12-04] MEDS: BACLOFEN 10 MG TABLET PO SCH ×2 (13:16→21:58)
[2016-12-04] MEDS: GABAPENTIN 800 MG TABLET PO SCH ×3 (13:17→21:57)
[2016-12-04] MEDS: HYDROCODONE/APAP 10 MG/325 MG TABLET PO PRN ×2 (13:17→20:18)
[2016-12-04] MEDS ORDERED: BISACODYL 10 MG SUPPOSITORY RECTALLY PRN (16:39)
[2016-12-04] MEDS: LACTOBACILLUS (15B cfu) CAPSULE PO SCH (17:01)
[2016-12-04] MEDS: HYDROMORPHONE 2 MG/ML INJECTION IVP PRN ×2 (17:01→20:19)
[2016-12-04] MEDS: NS 1,000 ML IV SCH (19:46)
[2016-12-04] MEDS ORDERED: TRAZODONE 100 MG TABLET PO SCH (21:00)
[2016-12-04] MEDS ORDERED: SIMVASTATIN 20 MG TABLET PO SCH (21:00)
[2016-12-05] MEDS: HYDROMORPHONE 2 MG/ML INJECTION IVP PRN ×3 (00:38→09:45)
[2016-12-05 01:07] VITALS: O2SAT 95
[2016-12-05] MEDS: PIPERACILLIN/TAZOBACTAM 3.375 GM in NS 100 ML IV SCH ×2 (05:06→10:05)
[2016-12-05] MEDS ORDERED: OMEPRAZOLE 40 MG CAPSULE PO SCH (06:30)
[2016-12-05] MEDS: BACLOFEN 10 MG TABLET PO SCH ×2 (06:53→12:06)
[2016-12-05 07:28] VITALS: BP 158/81; PULSE 75; RESP 16; TEMP 96.7
[2016-12-05] MEDS: NS 1,000 ML IV SCH (07:31)
[2016-12-05] MEDS: LACTOBACILLUS (15B cfu) CAPSULE PO SCH (08:12)
[2016-12-05] MEDS: GABAPENTIN 800 MG TABLET PO SCH ×2 (08:12→12:06)
[2016-12-05] MEDS ORDERED: ASPIRIN 81 MG CHEWABLE TABLET PO SCH (09:00)
[2016-12-05] MEDS ORDERED: BENAZEPRIL 10 MG TABLET PO SCH (09:00)
[2016-12-05] MEDS: HYDROCODONE/APAP 10 MG/325 MG TABLET PO PRN (12:12)
--- NOTE | 2016-12-05 13:35 | Progress Note ---
Subjective: F/U: Cellulitis of right upper ext secondary to cat bite. Doing better today. Redness to arm decreasing. Still with pain, but improving. Has improvement of ROM of wrist and hand. No f/c. Eating well. No nausea or ab pain. Stools stable. Breathing well. Feels making good improvement. Objective Vital signs: Temperature 96.7 F L 12/05/16 07:28 Pulse Rate 75 12/05/16 07:28 Respiratory Rate 16 12/05/16 07:28 Blood Pressure 158/81 H 12/05/16 07:28 Pulse Oximetry 95 12/05/16 07:28 Height/Weight/BMI: Height 1.85 m Weight 96.2 kg Body Mass Index 27.3 - Constitutional Present: no acute distress, well nourished, well developed, cooperative - Routine HEENT Exam Head: Present: normocephalic, atraumatic Eye: Present: EOMI, PERRL ENT: Present: mucous membranes moist - Routine Respiratory Exam Present: decreased breath sounds. Absent: rales, respiratory distress, rhonchi , wheezes, crackles - Routine Cardiovascular Exam Present: RRR, no murmur - Routine Abdominal Exam Present: soft, normoactive bowel sounds, non distended, non tender - Routine Extremities Exam Present: cyanosis, clubbing, no edema, pulses intact - Routine Musculoskeletal Exam Musculoskeletal: Present: no clubbing or cyanosis, other (Improving ROM of wrist and hand on right ) - Routine Skin Exam Present: erythema (Erythema of right forarm decreasing. ), dry. Absent: mottling, petechiae - Routine Neurological Exam Present: alert, oriented X3, CN II-XII intact, moving all extremities, vision grossly intact, hearing grossly intact. Absent: motor deficit, altered mental status - Routine Psychiatric Exam Present: normal affect, normal thought process, cooperative, good insight, good judgment. Absent: anxious, agitated Results - Labs CBC & Chem 7: 12/05/16 04:25 12/05/16 04:25 Assessment and Plan (1) Cat bite involving extremity Current visit: Yes Status: Acute DVT Prophylaxis: SCD's Resuscitation Status: Full Code Assessment and Plan: Assessment Cat bite with cellulitis to right upper forearm and failed outpatient antimicrobial treatment, acute. Hypertension, chronic. CAD, chronic. GERD with history of PUD, chronic. Hypercholesterolemia, chronic. COPD and emphysema, chronic. Anxiety, chronic. Anemia, macrocytic, chronic. Low back pain, chronic. Plan WBC decreasing. Erythema to right UE decreasing and ROM improving. No f/c. Will discharge to home. Complete course of Augmentin started prior to admission. Encourage gentle ROM of right wrist and hand. Watch for increase redness/swelling/pain to right proximal arm and axilla. Monitor for temp elevation. Continue chronic medications. F/U with Dr Subramanian's group in 1 week, soon as problems or need occur. See orders for details. Time spent with patient care and discharge greater than 30 minutes. - Time spent with patient Time with patient PN: 30 minutes Hospital Course Summary Disclaimer: The visit summary below is not to be considered part of the above Progress Note. Hospital Course: Plan-12/04/16 (Admission) Admit to observation status under the care of Dr. Tena. Initially started on Augmentin as outpatient for cat bite with worsening of symptoms. Discontinue home Augmentin and initiate Zosyn 3.375g IV Q6 hr for antimicrobial coverage. Cellulitis to right forearm noted on exam and outlined with skin marker. Monitor cellulitis closely for worsening. Initial lactate 1.7 and repeat lactate 2.5. Procalcitonin 0.06 on admission. Will obtain repeat lactate and recheck procalcitonin in AM to monitor for improvement. Forearm x-ray in ED showed no acute osseous abnormality. No bleeding or discharge to puncture wounds noted on exam. Consider surgical consult for further evaluation and possible surgical wash out. Patient is up to date on his tetanus - obtained in 2016 per patient. Intensity of pain with movement and palpation along tendon concerning for tenosynovitis of flexor carpi ulnaris and palmaris longus. May consider immobilization of wrist for additional pain control. Macrocytic anemia noted on admission. History of anemia. Will monitor closely throughout admission. No signs of active bleeding on exam. History of PUD and GERD. Continue home Prilosec. Patient reports he is scheduled for EGD and colonoscopy on 12/10/[address] Subramanian. SCDs for DVT prophylaxis. Continue home medications including benazepril for hypertension. Monitor blood pressure closely. History of chronic back pain. Nerve stimulator placed 11/02/16. Continue home pain medications. Dilaudid 0.5mg Q3h for additional pain control. Lactobacillus in light of antibiotic. Patient reports loose stool today. CRP elevated on admission at 25.7. WBC stable at 10.0 with 86% neutrophils and 1% bands. Will recheck CBC and BMP in AM to monitor blood counts, electrolytes and renal function. Upon discharge, patient's care will be returned to his PCP, Dr. Subramanian. 12/05/16 WBC decreasing. Erythema to right UE decreasing and ROM improving. No f/c. Will discharge to home. Complete course of Augmentin started prior to admission. Encourage gentle ROM of right wrist and hand. Watch for increase redness/swelling/pain to right proximal arm and axilla. Monitor for temp elevation. Continue chronic medications. F/U with Dr Subramanian's group in 1 week, soon as problems or need occur. See orders for details.
--- NOTE | 2016-12-05 13:45 | Discharge Summary ---
Discharge Information Date of admission: 12/04/16 10:33 Anticipated date of discharge: 12/05/16 Attending Physician: Tomas Tena MD Primary care physician: Libra Antoine APRN - Discharge Diagnosis (1) Cat bite involving extremity Status: Acute Discharge Diagnosis: Discharge diagnosis Cat bite with cellulitis to right upper forearm and failed outpatient antimicrobial treatment, acute. Associated conditions and complications Hypertension, chronic. CAD, chronic. GERD with history of PUD, chronic. Hypercholesterolemia, chronic. COPD and emphysema, chronic. Anxiety, chronic. Anemia, macrocytic, chronic. Low back pain, chronic. - Laboratory Labs: Admit Lab 12/04/16 09:25 WBC 10.0 Hgb 12.6 L Hct 37.1 L MCV 103.9 H Plt Count 187 Neutrophils % (Manual) 86.0 H Band Neutrophils % 1.0 Lymphocytes % (Manual) 7.0 L Laboratory Tests 12/04/16 12/04/16 09:23 09:25 Sodium 143 Potassium 4.2 Chloride 110 H Carbon Dioxide 23 Anion Gap 10 BUN 12.0 Creatinine 0.9 GFR Calculation 87 Glucose 115 H Calculated Osmolality 276 Calcium 9.6 Total Bilirubin 0.40 AST 19 ALT 39 Alkaline Phosphatase 102 C-Reactive Protein 25.7 H Albumin 3.9 Plasma Lactate 1.7 12/05/16 04:25 12/05/16 04:25 History of Present Illness HPI: Broderick Chung is a pleasant 56-year-old male who presented to [facility] emergency department today, 12/04/16, for evaluation of a cat bit to his right forearm. He reports that on 11/30/16 he was petting his cat at home on the stomach when the cat bit and scratched his right anterior wrist and forearm. He reports that his cat is up to date on all his vaccinations and denies any concerns for rabies. On 12/02, he noticed some increased tenderness and mild erythema to the anterior right wrist by the puncture wound. Yesterday, he noticed the erythema was spreading up his right arm with increased pain. He was seen by his PCP, Dr. Subramanian, and started on Augmentin orally. Today, he woke up with severe right forearm, wrist and hand pain with further extending erythema into his right hand along the 5th phalange and up his anterior right forearm. No obvious swelling, bleeding or discharge from the puncture wounds or the scratch. He denies any fevers, chill, chest pain, shortness of breath, abdominal pain, nausea, vomiting or other concerns. Due to his increased pain and worsening erythema despite taking 3 doses of the Augmentin, he presented to [facility] emergency department for further evaluation. Labs were obtained in the ED which revealed WBC 10.0 with 86% neutrophils and 1% bands, mild anemia with hemoglobin at 12.6 , platelets 187. CMP was unremarkable. CRP was elevated at 25.7. Lactate was 1.7 and procalcitonin was 0.06. Forearm x-ray was obtained and showed no acute osseous abnormalities. Due to his severe pain, he was given dilaudid and fentanyl with brief improvement in his pain. Zosyn was initiate for antimicrobial coverage. Dr. Tena was contacted and he was admitted into observation status for further evaluation and treatment. His length of stay is not expected to exceed more than 2 over nights. For complete details of the H&P refer to that document. Objective Vital signs: Temperature 96.7 F L 12/05/16 07:28 Pulse Rate 75 12/05/16 07:28 Respiratory Rate 16 12/05/16 07:28 Blood Pressure 158/81 H 12/05/16 07:28 Pulse Oximetry 95 12/05/16 07:28 Height/Weight/BMI: Height 1.85 m Weight 96.2 kg Body Mass Index 27.3 Hospital Course This is a general summary of the patient's hospital course. For more details refer to the complete medical record. Hospital course: Plan-12/04/16 (Admission) Admit to observation status under the care of Dr. Tena. Initially started on Augmentin as outpatient for cat bite with worsening of symptoms. Discontinue home Augmentin and initiate Zosyn 3.375g IV Q6 hr for antimicrobial coverage. Cellulitis to right forearm noted on exam and outlined with skin marker. Monitor cellulitis closely for worsening. Initial lactate 1.7 and repeat lactate 2.5. Procalcitonin 0.06 on admission. Will obtain repeat lactate and recheck procalcitonin in AM to monitor for improvement. Forearm x-ray in ED showed no acute osseous abnormality. No bleeding or discharge to puncture wounds noted on exam. Consider surgical consult for further evaluation and possible surgical wash out. Patient is up to date on his tetanus - obtained in 2016 per patient. Intensity of pain with movement and palpation along tendon concerning for tenosynovitis of flexor carpi ulnaris and palmaris longus. May consider immobilization of wrist for additional pain control. Macrocytic anemia noted on admission. History of anemia. Will monitor closely throughout admission. No signs of active bleeding on exam. History of PUD and GERD. Continue home Prilosec. Patient reports he is scheduled for EGD and colonoscopy on 12/10/[address] Subramanian. SCDs for DVT prophylaxis. Continue home medications including benazepril for hypertension. Monitor blood pressure closely. History of chronic back pain. Nerve stimulator placed 11/02/16. Continue home pain medications. Dilaudid 0.5mg Q3h for additional pain control. Lactobacillus in light of antibiotic. Patient reports loose stool today. CRP elevated on admission at 25.7. WBC stable at 10.0 with 86% neutrophils and 1% bands. Will recheck CBC and BMP in AM to monitor blood counts, electrolytes and renal function. Upon discharge, patient's care will be returned to his PCP, Dr. Subramanian. 12/05/16 WBC decreasing. Erythema to right UE decreasing and ROM improving. No f/c. Will discharge to home. Complete course of Augmentin started prior to admission. Encourage gentle ROM of right wrist and hand. Watch for increase redness/swelling/pain to right proximal arm and axilla. Monitor for temp elevation. Continue chronic medications. F/U with Dr Subramanian's group in 1 week, soon as problems or need occur. See orders for details. Time spent with patient: discharge greater than 30 minutes DVT Prophylaxis: SCD's Discharge Plan - Med Rec/Dispo Referrals/Follow Up: Libra Antoine APRN [Family Provider] - 1 Week (Hospital follow up for cellulitis secondary to cat bite. ) Prescriptions: Continue Multivitamin/Iron/Folic Acid [Centrum Complete Multivit Tab] 1 tab PO DAILY # 0 Aspirin [Aspir 81] 81 mg PO DAILY #0 trazodone 100 mg tablet 100 mg PO HS #30 tab Zocor (simvastatin) 20 mg tablet 20 mg PO HS #90 tab albuterol sulfate HFA 90 mcg/actuation aerosol inhaler 1 puff INH Q6H PRN # 18 g PRN Reason: PRN ORDERS baclofen 10 mg tablet 10 mg PO Q8H #60 tab Colyte 240 gram-electrolytes 22.72 gram-6.72 g-5.84 g powdr for soln 240 ml PO Q10M #1 gal benazepril 10 mg tablet 10 mg PO DAILY tab Vicodin HP (Hydrocodone 10 mg-acetaminophen 300 mg tablet) 1 tab PO .6 times per day PRN tab PRN Reason: pain Neurontin (gabapentin) 800 mg tablet 800 mg PO QID #180 tab Prilosec (Omeprazole) 40 mg capsule,delayed release 40 mg PO AM #30 cap Augmentin (amoxicillin 875 mg-potassium clavulanate 125 mg) tablet 1 tab PO BID #10 tab Discharge Instructions/Outpatient Orders: Final Provider Discharge Instructions Location: Determined By Patient - Disposition 01 Discharged Home, Self-Care - Attestation Attestation Narrative: 12/05/16 13:49 I have independently interviewed and examined patient prior to discharge. See my progress note from today for details. Medically stable for discharge to home.
== END 2016-12-05 14:08 | disposition home or self-care (01) ==
LOC: MED 08:23 → ED 08:23 → MED 10:50
PROVIDERS: ADMIT Hospitalist; ATTEND Hospitalist